=== PATIENT | female | born 2000 | race Caucasian/White ===

== ENCOUNTER 2019-03-20 17:32 | Inpatient (IN) | payer OTHER ==
[~2019-03-20] VITALS: Ht 170.2 cm; Wt 152.5 kg
[2019-03-20 17:56] VITALS: BP_SYST 122; PULSE 104; RESP 18; Ht 170.2 cm; Wt 152.5 kg
[2019-03-20] MEDS ORDERED: ONDANSETRON 4 MG INJ IV STA (19:43)
[2019-03-20] MEDS ORDERED: LACTATED RINGER'S 1,000 ML IV SCH (20:00)
--- NOTE | 2019-03-20 20:04 | HP ---
Date/Time of Note Date/Time of Note DATE: 03/20/19 TIME: 19:58 OB - History Hx of Present Free Text/Dictation Patient is a 19-year-old 1 para 0 at 38 weeks of gestation with BMI of 53 and estimated date of delivery April 03, 2019 She presents from the clinic with elevated blood pressures of 155/92 and 148/96 Blood pressure here in triage 122/79 Patient reports positive movement, denies vaginal bleeding or leaking fluid, denies uterine contractions Patient reports positive headaches, positive nausea and vomiting, denies chest pain or shortness of breath, denies right upper quadrant pain GBS status is negative Estimated Due Date: Apr 03, 2019 : 1 Para: 0 Care: Good Care Obstetrical Complications: Gestational Hypertension Medical Complications: Other (Morbid obesity) Past Family/Social History * Past Medical, Surgical, Family and Obstetric Histories reviewed from chart. OB Admission Exam Vital Signs Vital Signs Vital Signs Date Temp Pulse Resp B/P (MAP) Pulse Ox O2 O2 Flow FiO2 Time Delivery Rate 03/20/19 98.1 104 18 122/ 17:56 Physical Exam HEENT: WNL Heart: Rhythm Normal Lungs: Clear, Equal Abdomen: WNL Extremities: Normal Reflexes: Normal Cervical Dilatation: None Membranes: Intact Heart Rate: 140's Accelerations: Accelerations Present Decelerations: No Decelerations Contractions on Admission: None Last 72 hours Lab Results CBC & BMP 03/20/19 17:45 Liver Function Test 03/20/19 17:45 Alanine Aminotransferase (ALT/SGPT) 16 Albumin 3.6 Alkaline Phosphatase 109 Aspartate Amino Transf (AST/SGOT) 15 Direct Bilirubin 0.00 Total Protein 7.5 PROCEDURE: Biophysical profile. CLINICAL INDICATION: Pelvic pain. TECHNIQUE: Multiple sonographic images of the pelvis were obtained with transabdominal technique. COMPARISON: No prior studies are available for comparison. FINDINGS: There is a single living intrauterine gestation with the fetus in a vertex position. The placenta is posterior in location, grade II. heart tones of 152 beats per minute are identified. There is normal amniotic fluid volume with an TOBY of 10.1 cm. breathing movements = 2 Gross body movements = 2 tone = 2 Qualitative AFV = 2 IMPRESSION: Biophysical profile 8 out of 8. .Mychal Florentino MD, MD Date Time Electronically viewed and signed by .Mychal Florentino MD, MD on 03/20/2019 18:26 .T/ CC: ALIVIA KHAN MD [phone] PROCEDURE: US OB. CLINICAL INDICATION: size and placental position. TECHNIQUE: Multiple sonographic images of the pelvis were obtained. The images were reviewed on a PACS workstation. COMPARISON: None FINDINGS: The cervix length is . There is a single viable intrauterine gestation. Cardiac activity is present with 141 beats per minute. The fetus is in longitudinal lie, cephalic presentation.. Measurements were made in order to determine age. The results are as follows: BPD = obscured HC = obscured AC = 34.4 FL = 7.4. Based on these current measurements: Estimated gestational age of approximately 38 weeks 1 day. Estimated gestational age by LMP or early exam is 38 weeks 0 days. The EFW = 3.46 kg . Complete survey is not performed at this time. The placenta is posterior fundal. There is no evidence of abruption or placenta previa. IMPRESSION: 1. Single live intrauterine fetus at approximately 38 weeks 1 day by the above biometrics. The estimated weight is 3.46 kg . 2. Longitudinal lie, cephalic presentation. 3. Unremarkable posterior fundal placenta. RPTAT:AAJJ Physician Virginie Date Time Electronically viewed and signed by Physician Virginie on 03/20/2019 20:28 GW/ CC: JUAN CARLOS GEORGES MD [phone] OB Assessment/Plan Reason for admission: induction of labor (Gestational hypertension and morbid obesity) Induction Method: per Misoprostol Protocol Other plan: Admit for induction of labor for gestational hypertension IV fluids and Zofran Pain meds as needed Copies To: CC: LUIS HARPER ; JUAN CARLOS GEORGES MD 14, 2019 20:04
--- NOTE | 2019-03-20 21:52 | QN ---
Documentation Comment 19 years old 1 with BMI of 52.7 and single intrauterine at 38weeks was seen in clinic today, she had 2 elevated blood pressure in the range of [id number]. Patient sent to triage for further evaluation. She also had one elevated blood pressure in the last weeks visit. At that time repeat blood pressure was within normal limits. She states good movement. She denies nausea, vomiting, shortness of breath, chest pain, headache, visual changes, vaginal bleeding or LOF. Due to morbid obesity and gestational hypertension induction of labor with risks and benefits discussed in detail with patient. She has agreed. -FHR: No sign of metabolic acidosis- Category I -Continuous EFM, toco -Analgesia options with R/B/A discussed in detail with patient -Epidural per patient request -Please see the orders Admission, procedures, expectations, risks and possible complications have been discussed in detail with the patient. Risk of vaginal delivery including but not limited to bleeding, infection, cervical laceration, placental retention, injury to fetus, blood transfusion, blood transfusion related infection, risk of anesthesia, adhesion, cervical laceration, episiotomy/laceration, possible delivery with risk of bleeding, infection, injury to other organs (bowel, bladder, ureter, vessels, nerves), injury to fetus, blood transfusion, blood transfusion related infection, risk of anesthesia, scar and hernia formation, needs for future , removal of uterus or any other indicated surgery discussed with the patient. She expressed understanding and repeats the risks. All of her questions were answered. She signed the informed consent. PHYSICIAN'S VERIFICATION OF INFORMED CONSENT The patient was counseled regarding the procedure, its indications, risks, potential complications and alternatives and any questions were answered. Consent was obtained. PLANNED PROCEDURE/TREATMENT: Vaginal delivery, episiotomy, repair of laceration possible delivery PHYSICIAN'S VERIFICATION OF INFORMED CONSENT FOR BLOOD TRANSFUSION: There is a reasonable possibility that blood transfusion will be necessary as a result of the patient's procedure. I have discussed the following with the patient/patient's legal vendor representatives: An explanation of the benefits and risks of the transfusion of blood or blood products and the possible alternatives. All questions have been answered to the patient's satisfaction. INFORMED CONSENT:The patient has been informed of: The nature of the proposed care, treatment, services, medications, interventions or procedures. Potential benefits, risks or side effects, including potential problems related to recuperation. The likelihood of achieving care treatment and service goals. Reasonable alternatives to the proposed care, treatment and service. The relevant risks, benefits and side effects related to alternatives, including the possible results of not receiving care, treatment and services. When indicated, any limitations on the confidentiality of information learned from or about the patient. If appropriate, the risks, benefits and alternatives of the drugs to be used for sedation/analgesia including moderate sedation. If appropriate, patient has been provided information on the risks, benefits and alternatives to the transfusion of blood and/or blood products. If appropriate, patient has been provided information regarding the [place] Blood Act. LUIS HARPER Mar 20, 2019 21:52
[2019-03-20] MEDS ORDERED: OXYTOCIN 30 UNITS/LR 500 ML IV SCH ×2 (22:00)
[2019-03-20] MEDS ORDERED: BUTORPHANOL 2 MG INJ IV PRN (22:00)
[2019-03-20] MEDS ORDERED: MISOPROSTOL 200 MCG TAB PR PRN (22:00)
[2019-03-20] MEDS ORDERED: CARBOPROST 250 MCG INJ IM PRN (22:00)
[2019-03-20] MEDS ORDERED: IBUPROFEN 600 MG TAB PO PRN (22:00)
[2019-03-20] MEDS ORDERED: OXYTOCIN 30 UNITS/LR 500 ML IV PRN (22:00)
[2019-03-20] MEDS ORDERED: METHYLERGONOVINE 0.2 MG INJ IM PRN (22:00)
[2019-03-20] MEDS ORDERED: LIDOCAINE 1% (MPF) 30 ML INJ INJ PRN (22:00)
[2019-03-20] MEDS: LACTATED RINGER'S 1,000 ML IV SCH (22:04)
[2019-03-21] MEDS ORDERED: MISOPROSTOL 50 MCG CAPSULE VAG ONE
[2019-03-21] MEDS: MISOPROSTOL 50 MCG CAPSULE PO SCH ×5 (03:03→20:25)
[2019-03-21] MEDS: LACTATED RINGER'S 1,000 ML IV SCH ×3 (04:41→21:24)
[2019-03-22] MEDS: MISOPROSTOL 50 MCG CAPSULE PO SCH (05:47)
[2019-03-22] MEDS: LACTATED RINGER'S 1,000 ML IV SCH ×3 (05:58→22:06)
[2019-03-22] MEDS ORDERED: OXYTOCIN 30 UNITS/LR 500 ML IV SCH ×2 (10:00→23:04)
[2019-03-22] MEDS: LACTATED RINGER'S 1,000 ML IV PRN ×2 (18:06→19:02)
--- NOTE | 2019-03-22 18:21 | PREAC ---
Date/Time of Note Date/Time of Note DATE: 03/22/19 TIME: 18:19 Anesthesia Eval and Record Evaluation Time Pre-Procedure Interview DATE: 03/22/19 TIME: 18:19 Age 19 Sex female NPO: 8 hrs Preoperative diagnosis IUP Planned procedure L&D Epidural Past Medical History Past Medical History: Includes Cardio: HTN, Dyslipidemia GI: Morbid obesity : : Surgery & Anesthesia Issues No known issue Meds Anticoagulation: No Beta [place] within 24 hr: No Reason Beta [place] not given: Pt. not on B-[place] Current Medications Lactated Ringer's 1,000 ml @ 125 mls/hr Q8H IV Last administered on 03/22/19at 14:34; Admin Dose 125 MLS/HR; Start 03/20/19 at 21:31 Butorphanol Tartrate (Stadol) 2 mg Q2H PRN IV .PAIN SCALE 6-10 Last administered on 03/22/19at 13:06; Admin Dose 2 MG; Start 03/20/19 at 22:00 Lidocaine (Xylocaine 1% (Mpf)) 30 ml ONCE PRN INJ .EPISIOTOMY; Start 03/20/19 at 22:00 Oxytocin/Lactated Ringer's 500 ml @ 500 mls/hr ONCE POST IV ; Start 03/20/19 at 22:00 Oxytocin/Lactated Ringer's 500 ml @ 125 mls/hr POST IV ; Start 03/20/19 at 22:00 Ibuprofen (Motrin) 600 mg ONCE PRN PO .PAIN 1-5; Start 03/20/19 at 22:00 Lactated Ringer's 1,000 ml @ 2,000 mls/hr Q30M PRN IV .ANESTHESIA Last administered on 03/22/19at 18:06; Admin Dose 2,000 MLS/HR; Start 03/20/19 at 21:31 Oxytocin/Lactated Ringer's 500 ml @ 0 mls/hr ONCE PRN IV .VAGINAL BLEEDING; Start 03/20/19 at 22:00 Methylergonovine Maleate (Methergine) 0.2 mg ONCE PRN IM .VAGINAL BLEEDING; Start 03/20/19 at 22:00 Carboprost Tromethamine (Hemabate) 250 mcg ONCE PRN IM .VAGINAL BLEEDING; Start 03/20/19 at 22:00 Misoprostol (Cytotec) 1,000 mcg ONCE PRN AL .VAGINAL BLEEDING; Start 03/20/19 at 22:00 Oxytocin/Lactated Ringer's 500 ml @ 0 mls/hr Q0M IV Last administered on 03/22/19at 10:32; Admin Dose 1 MLS/HR; Start 03/22/19 at 10:00 Meds reviewed: Yes Allergies Coded Allergies: No Known Allergy (Unverified , 03/20/19) Allergies Reviewed: Yes Labs/Studies Labs Reviewed: Reviewed by anesthesiologist Result Diagram: 03/20/19 [id number] test: N/A Studies: ECG Pre-procedure Exam Last vitals Vital Signs Date Temp Pulse Resp B/P (MAP) Pulse Ox O2 O2 Flow FiO2 Time Delivery Rate 03/20/19 98.1 104 18 122/ 17:56 Airway: Adequate mouth opening, Adequate thyromental dist Mallampati: Mallampati II Teeth: Normal Lung: Normal Heart: Normal ASA Physical Status ASA physical status: 3 Emergency: None Planned Anesthetic Neuraxial: Epidural Planned Pain Management Epidural Pre-operative Attestations Prior to commencing anesthesia and surgery, the patient was re-evaluated, there was verification of: *The patient's identity *The results of appropriate recent lab work and preoperative vital signs *The above evaluation not changing prior to induction *Anesthetic plan, risk benefits, alternative and complications discussed with patient/family; questions answered; patient/family understands, accepts and wishes to proceed. MELINDA THRASHER MD Mar 22, 2019 18:21
[2019-03-22] MEDS ORDERED: ONDANSETRON 4 MG INJ IV PRN (18:30)
[2019-03-22] MEDS ORDERED: DIPHENHYDRAMINE 50 MG INJ IV PRN (18:30)
[2019-03-22] MEDS ORDERED: FENTAnyl 2MCG/ML-ROPIV 0.2% 100 ML BAG EPI SCH (18:30)
[2019-03-22] MEDS ORDERED: NALOXONE (0.4 MG/ML) INJ IV PRN (18:30)
[2019-03-22] MEDS ORDERED: SODIUM CHLORIDE 0.9% 1L IRRIG IRR SCH (20:00)
[2019-03-22] MEDS ORDERED: MINERAL OIL LIGHT 10 ML VIAL TOP ONE (21:30)
[2019-03-22] MEDS ORDERED: CEFAZOLIN 3 GM in DEXTROSE 5% 100 ML IV ONE (22:30)
--- NOTE | 2019-03-22 22:58 | PAC ---
Date/Time of Note Date/Time of Note DATE: 03/22/19 TIME: 22:58 Post-Anesthesia Notes Post-Anesthesia Note Last documented vital signs Vital Signs Date Temp Pulse Resp B/P (MAP) Pulse Ox O2 O2 Flow FiO2 Time Delivery Rate 03/20/19 98.1 104 18 122/ 17:56 Activity: WNL Respiratory function: WNL Cardiovascular function: WNL Mental status: Baseline Pain reasonably controlled: Yes Hydration appropriate: Yes Nausea/Vomiting absent: Yes Comments BP:112/67, P:78, Spo2:100%, T:98,8 MELINDA THRASHER MD Mar 22, 2019 22:58
--- NOTE | 2019-03-22 23:04 | LDN ---
Date/Time of Note Date/Time of Note DATE: 03/22/19 TIME: 23:02 Delivery Summary of a viable baby girl weighing 3415 grams or 7# 8 oz, 19" long, and with Apgars of 9/9. Weeks of Gestation 39w 2d Placenta Delivered: Spontaneously Meconium: none Episiotomy: No Perineal laceration: 2 Laceration repair: 2nd segree perineal laceration repaired with 2-0 chromic. Anesthesia type: Epidural Estimated blood loss: 200 Sponge & Needle done & correct: Yes All needle counts correct: Yes Any foreign bodies felt in the: No (vagina) Delivery Information Sex Infant Sex: female Apgars 1 Minute: 9 5 Minute: 9 Suctioning Nose & mouth suctioned at aly: No Delee suction performed: No Umbilical Cord Umbilical cord with: 3 Vessels Cord presentations: no nuchal cord Cord Blood was obtained: Yes Mother & Baby Disposition Disposition Mom & Baby to Maternity; Good: Yes Baby to NICU: No YAMILE ARRIOLA MD Mar 22, 2019 23:04
[2019-03-22] MEDS ORDERED: LANOLIN HPA 1 PKT TOP PRN (23:30)
[2019-03-22] MEDS ORDERED: MISOPROSTOL 200 MCG TAB PR PRN (23:30)
[2019-03-22] MEDS ORDERED: CARBOPROST 250 MCG INJ IM PRN (23:30)
[2019-03-22] MEDS ORDERED: OXYTOCIN 30 UNITS/LR 500 ML IV PRN (23:30)
[2019-03-23] MEDS ORDERED: ONDANSETRON 4 MG INJ IV PRN (00:30)
[2019-03-23] MEDS ORDERED: DIPHENHYDRAMINE 50 MG INJ IV PRN (00:30)
[2019-03-23] MEDS ORDERED: NALOXONE (0.4 MG/ML) INJ IV PRN (00:30)
[2019-03-23 01:30] VITALS: BP 136/75; PULSE 89; RESP 20
[2019-03-23 02:30] VITALS: BP 128/70; PULSE 108; RESP 19
[2019-03-23] MEDS: BENZOCAINE 20% 56 ML SPRAY TOP PRN (02:36)
[2019-03-23] MEDS: LACTATED RINGER'S 1,000 ML IV* SCH ×2 (03:31→07:04)
[2019-03-23] MEDS: IBUPROFEN 800 MG TAB PO SCH ×5 (03:34→23:38)
[2019-03-23] MEDS: HYDROCODONE/APAP (5/325) TAB PO PRN ×2 (04:18→18:04)
[2019-03-23 04:49] VITALS: BP 113/56; PULSE 107; RESP 18
[2019-03-23 07:30] VITALS: BP 123/65; PULSE 95; RESP 18
[2019-03-23] MEDS: SENNA/DOCUSATE NA (8.6MG/50MG) TAB PO SCH ×2 (08:52→20:36)
[2019-03-23 16:04] VITALS: BP 132/72; PULSE 85; RESP 18
--- NOTE | 2019-03-23 17:57 | QN ---
Documentation Comment day #1 Status post Patient stable and afebrile Vital signs stable VS - Last 72 Hours, by Label Date Temp Pulse Resp B/P (MAP) Pulse Ox O2 O2 Flow FiO2 Time Delivery Rate 03/23/19 98.4 85 18 132/72 Room Air 16:04 (92) 03/23/19 98.1 95 18 123/65 Room Air 07:30 (84) 03/23/19 98.4 107 18 113/56 Room Air 04:49 (75) 03/23/19 98.8 108 19 128/70 Room Air 02:30 (89) 03/23/19 98.9 89 20 136/75 Room Air 01:30 (95) Hematology - 72 Hrs Test 03/23/19 07:10 Hematocrit 35.5 % (37.0-47.0) L Hemoglobin 11.0 g/dl (12.0-16.0) L Mean Corpuscular Hemoglobin 25.6 pg (29.0-33.0) L Mean Corpuscular Hemoglobin Concent 31.0 g/dl (32.0-37.0) L Mean Corpuscular Volume 82.8 fl (72.0-104.0) Mean Platelet Volume 10.3 fl (7.4-10.4) Platelet Count 305 10^3/UL (140-415) Red Blood Count 4.29 10^6/ul (4.20-5.40) Red Cell Distribution Width 14.9 % (11.5-14.5) H White Blood Count 15.5 10^3/ul (4.8-10.8) #H Abdomen soft, fundus firm Perineum intact Extremities nontender Assessment and plan Patient stable and doing well Continue with routine care JUAN CARLOS GEORGES MD Mar 23, 2019 17:57
[2019-03-23] MEDS ORDERED: MEASLES,MUMPS,RUBELLA VACCINE INJ SC* ONE (19:30)
[2019-03-23 20:30] VITALS: BP 129/76; PULSE 91; RESP 18
[2019-03-24] MEDS: HYDROCODONE/APAP (5/325) TAB PO PRN (02:32)
[2019-03-24 03:29] VITALS: BP 124/68; PULSE 82; RESP 18
[2019-03-24] MEDS: IBUPROFEN 800 MG TAB PO SCH ×2 (05:42→11:41)
[2019-03-24 08:00] VITALS: BP 120/62; PULSE 70; RESP 18
[2019-03-24] MEDS ORDERED: DIPHTH/TET/ACEL PERTUSS (ADULT) 0.5 ML VIAL IM* ONE (09:00)
[2019-03-24] MEDS: SENNA/DOCUSATE NA (8.6MG/50MG) TAB PO SCH (10:13)
[2019-03-24] MEDS: BENZOCAINE 20% 56 ML SPRAY TOP PRN (15:24)
--- NOTE | 2019-03-25 02:39 | DS ---
Date/Time of Note Date/Time of Note DATE: 03/25/19 TIME: 02:37 Obstetrical Discharge Record Final Diagnosis Final Diagnosis: Term delivered Other Final Diagnosis Late entry note. Patient seen on 03/24/2019 19 years old -0-0-1 s/p normal vaginal delivery at 38 weeks. day 2. course was unremarkable. She is ambulating and tolerating regular diet. She is voiding without difficulty. Pain is controlled on current medication. She is afebrile, vital sign is stable. Continue care. She discharged home in stable condition with follow-up with her primary OB. Vaginal Delivery Obstetrical Delivery: Spontaneous Condition on Discharge Physical Assessment Last Vitals: Vital Signs Date Temp Pulse Resp B/P (MAP) Pulse Ox O2 O2 Flow FiO2 Time Delivery Rate 03/24/19 97.9 70 18 120/62 Room Air 08:00 (81) Voiding: Yes Bowel Movement: Yes Breast: Soft, non-tender Fundus: Firm Calf Tenderness: No Patient Condition: Stable LUIS HARPER Mar 25, 2019 02:39
--- NOTE | 2019-03-25 16:10 | DELSUM ---
Delivery Summary A-C Datetime Report Generated by CPN: 03/25/2019 16:09 DELIVERY PERSONNEL Life Skills Coach: Tersigni, Gilda MATERNAL INFORMATION Delivery Anesthesia: Epidural Medications in Delivery: LR with 30 units of pitocin Delivery QBL (ml): 200 Placenta Cultured: No Maternal Complications: Other Other Maternal Complications: HIGH BLOOD PRESSURE LABOR SUMMARY EDC: 04/03/2019 00:00 No. Babies in Womb: 1 Attempted: Yes Labor Anesthesia: Epidural LABOR INFORMATION Reason for Induction: Gest. HTN/PreEclam/Eclamp Onset of Labor: 03/22/2019 11:59 Complete Dilatation: 03/22/2019 22:27 Cervical Ripening Agents: Cytotec @ Oxytocin: Induction Group B Beta Strep: Negative Antibiotics # of Doses: 0 Steroids Given: None Reason Steroids Not Administered: Not Applicable MEMBRANES Membranes Rupture Method: Artificial Rupture of Membranes: 03/22/2019 17:42 Length of Rupture (hr): 4.85 Amniotic Fluid Color: Clear Amniotic Fluid Amount: Moderate Amniotic Fluid Odor: None STAGES OF LABOR Stage 1 hr: 10 Stage 1 min: 28 Stage 2 hr: 0 Stage 2 min: 6 Stage 3 hr: 0 Stage 3 min: 3 Total Time in Labor hr: 10 Total Time in Labor min: 37 VAGINAL DELIVERY Episiotomy: None Laceration Extension: Second Degree Laceration Type: Perineal Laceration Repair: Yes Initial Vag Sponge Count: 10 Final Vag Sponge Count: 10 Initial Vag Sharps Count: 1+1+1 Final Vag Sharps Count: 3 Sponge Count Correct: Yes; Vaginal Sweep Performed Sharps Count Correct: Yes BABY A INFORMATION Delivery Date/Time: 03/22/2019 22:33 Method of Delivery: Vaginal Born in Route : No : N/A Forceps: N/A Vacuum Extraction: N/A Shoulder Dystocia : N/A SHOULDER DYSTOCIA BABY A Infant Delivery Date/Time: 03/22/2019 22:33 PRESENTATION/POSITION BABY A Presentation: Cephalic Cephalic Presentation: Vertex Vertex Position: Left Occipital Anterior Breech Presentation: N/A PLACENTA INFORMATION BABY A Placenta Delivery Time : 03/22/2019 22:36 Placenta Method of Delivery: Expressed Placenta Status: Delivered SCORES BABY A Heart Rate 1 min: >100 bpm Resp Effort 1 min: Good Cry Reflex Irritability 1 min: Cough/Sneeze/Pulls Away Muscle Tone 1 min: Active Motion Color 1 min: Body [place], Extremit Blue Resuscitation Effort 1 min: Tactile Stimulation SCORE 1 MIN: 9 Heart Rate 5 min: >100 bpm Resp Effort 5 min: Good Cry Reflex Irritability 5 min: Cough/Sneeze/Pulls Away Muscle Tone 5 min: Active Motion Color 5 min: Body [place], Extremit Blue Resuscitation Effort 5 min: Tactile Stimulation SCORE 5 MIN: 9 INFORMATION BABY A Gestational Age at Delivery: 39.2 Gestational Status: Full Term- 39- 40.6 Weeks Infant Outcome : Liveborn Infant Condition : Stable Infant Sex: Female IDENTIFICATION/MEDS BABY A ID Band Number: [id number] ID Band Location: Right Leg Sensor Applied: Yes Sensor Number: [id number] Sensor Location : Cord Clamp Vitamin K Given : Not Given Erythromycin Given: Not Given WEIGHT/LENGTH BABY A Birthweight (gm): 3415 Infant Weight (lb): 7 Weight (oz): 8 Length (in): 19.00 Infant Length (cm): 48.26 CORD INFORMATION BABY A No. Cord Vessels: 3 Nuchal Cord : N/A Cord Blood Taken: Yes Suction: Mouth; Nose ASSESSMENT BABY A Complications: Multiple Late Decels; Multiple Variable Decels Physical Findings at Delivery: Molding of the Head; Within Normal Limits Respirations: Appears Normal Dock Hand/ALS Called : Yes Infant Care By: NICU team/ Pam OBREGON Transferred To: Remains with Mother
== END 2019-03-24 15:40 | disposition home or self-care (01) | DRG 807 ==
LOC: OBT 17:32 → L-D 17:33 → OBT 19:50 → L-D 19:50 → PP1 03-23 01:17
PROVIDERS: ADMIT Obstetrics & Gynecology; ATTEND Obstetrics & Gynecology
PROC: 10E0XZZ Delivery of Products of Conception, External Approach (ICD-10-PCS; principal; 2019-03-22)
PROC: 0KQM0ZZ Repair Perineum Muscle, Open Approach (ICD-10-PCS; 2019-03-22)
DX: O13.4 Gestational [pregnancy-induced] hypertension without significant proteinuria, complicating childbirth (principal); Z37.0 Single live birth; O99.214 Obesity complicating childbirth; E66.01 Morbid (severe) obesity due to excess calories; O70.1 Second degree perineal laceration during delivery; Z3A.38 38 weeks gestation of pregnancy; Z23 Encounter for immunization
CPT/HCPCS: 62322; 76815; 76818; 80053; 81001; 84560; 85025; 85384; 85610; 85730; 86592; 86850; 86900; 86901; 87340; 90715; 96360; 99464; G0463; J0595; J0690; J2405; J2590; J3010; J7120